=== PATIENT | male | born 1940 | race Caucasian/White ===

== ENCOUNTER 2021-06-02 05:40 | Day surgery (SDC) | payer MEDICARE, OTHER ==
--- NOTE | 2021-05-26 09:13 | HP ---
DATE OF SURGERY: 06/02/2021 HISTORY OF PRESENT ILLNESS: The patient presented for colonoscopy. He has not had a colonoscopy to date. He complains of no GI symptoms at this time. PAST MEDICAL HISTORY: Hyperlipidemia. Coronary artery disease. Hypertension. Diabetes. PAST SURGICAL HISTORY: Coronary artery bypass surgery. ALLERGIES: NKDA. MEDICATIONS: Atenolol, lovastatin, pioglitazone, metformin, glipizide, aspirin, Monopril. FAMILY HISTORY: Heart disease. Diabetes. SOCIAL HISTORY: Smokes half pack a day, occasional alcohol. REVIEW OF SYSTEMS: CONSTITUTIONAL: Denies fever or chills. CHEST: Denies shortness of breath. CVS: Denies chest pain. ABDOMEN: Denies abdominal pain. PHYSICAL EXAMINATION: GENERAL: No acute distress. CHEST: Nonlabored. No shortness of breath. CVS: Regular rate and rhythm. ABDOMEN: Soft. EXTREMITIES: No edema. NEUROLOGIC: Alert. PSYCHIATRIC: Appropriate. IMPRESSION: Screening colonoscopy. PLAN: Colonoscopy with Dr. Vivek Cee. As dictated by Ameena Grove NP.
[2021-06-02] MEDS ORDERED: Lactated Ringers 1,000 ML IV SCH (06:30)
[2021-06-02] MEDS ORDERED: DIPRIVAN 200 MG/20 ML IV ONE ×2 (08:32→09:29)
[2021-06-02] MEDS ORDERED: ROBINUL ONE (09:01)
[2021-06-02] MEDS ORDERED: Lactated Ringers 1,000 ML IV ONE (09:18)
[2021-06-02 10:08] VITALS: O2SAT 98
[2021-06-02 10:27] VITALS: BP 142/78; PULSE 62
--- NOTE | 2021-06-02 13:36 | OP ---
SURGERY DATE/TIME: 06/02/2021 0855 PREOPERATIVE DIAGNOSIS: Screening. POSTOPERATIVE DIAGNOSIS: Two polyps, 1.5 cm to cecum and 8 mm in the mid sigmoid. PROCEDURES: 1) Colonoscopy complete to cecum. 2) Cold polypectomy of the sigmoid polyp 8 mm. 3) Hot polypectomy of the 1.5 cm cecal polyp. 4) A clip was also applied to the base of the sigmoid polyp. SURGEON: Vivek Cee M.D. ANESTHESIA: MAC. COMPLICATIONS: None. CONDITION: Stable. INDICATION: A patient requiring evaluation. DESCRIPTION OF PROCEDURE: Taken to endoscopy. Anal digital examination satisfactory. Scope introduced. Sedation level satisfactory. Scope advanced to the cecum. Base of the cecum, ileocecal valve there was a 1.5 cm polyp. It was on a fold or ridge. It was taken to extinction. The center portion had just a pinpoint of red blood and was clipped with endoscopic clip. It was totally dry. The appendiceal orifice was not visible today but the base of the cecum was very well seen. Ascending, hepatic, transverse, splenic, descending. At the junction of the descending and sigmoid just slightly in the sigmoid there is an 8 mm polyp taken with two bites of cold polyp forceps. There was mild diverticulosis. The rectum and anus satisfactory. The patient tolerated the procedure satisfactorily. PLAN: Follow up in three years. He will return to our office for path report.
== END 2021-06-02 10:25 | disposition home or self-care (01) ==
LOC: SDC 05:40
PROVIDERS: ATTEND Surgery
DX: Z12.11 Encounter for screening for malignant neoplasm of colon (principal); D12.0 Benign neoplasm of cecum; D12.5 Benign neoplasm of sigmoid colon; E11.9 Type 2 diabetes mellitus without complications; I10 Essential (primary) hypertension; E78.5 Hyperlipidemia, unspecified; I25.10 Atherosclerotic heart disease of native coronary artery without angina pectoris; Z79.899 Other long term (current) drug therapy
CPT/HCPCS: 82947; 88305; 99100; J2704

== ENCOUNTER 2021-12-15 23:03 | Emergency (ER) | payer MEDICARE, OTHER ==
--- NOTE | 2021-12-15 23:31 | ERPHSYRPT ---
- History of Present Illness Time Seen by Provider: 12/15/21 23:20 Source: patient, EMS Exam Limitations: no limitations Patient Subjective Stated Complaint: fall at home, c/o lt shoulder pain Triage Nursing Assessment: pt c/o lt shoulder pain due to fall at home tonight from hypoglycemia. Pt's BS was 44, he was going to get a glass of milk and fell. Pt is c/o lt shoulder pain with movement, but denies any pain when holding arm still. Pt is able to wiggle his fingers and move his lower arm but is unable to lift his left shoulder up. Nickel sized skin tear to left elbow from fall. Physician History: This is an 81-year-old white male patient who documented that he had a low blood sugar of 44 at home. He got up to get some milk and to take other oral intake to raise his blood sugar but he fell hitting his left shoulder. His blood sugar on arrival to the emergency department was 81. He is completely alert oriented. His only complaint is left shoulder pain from the fall. He did not hit his head. He did not lose consciousness. He has no neck pain. Patient is diabetic, has a history of hypertension and elevated cholesterol. Occurred: just prior to arrival Reason for Fall: fell from standing pos Injuries/Pain Location: upper extremity (Left shoulder) Loss of Consciousness: no loss of consciousness Quality: aching Severity of Pain-Max: moderate Severity of Pain-Current: moderate Modifying Factors: Improves With: movement Associated Symptoms (Fall): extremity injury (Left shoulder) Allergies/Adverse Reactions: No Known Drug Allergies Allergy (Verified 12/15/21 23:21) Home Medications: Glipizide 10 mg [Glucotrol 10 MG] 10 mg PO BID 07/15/13 [History] Metformin HCl [Fortamet] 500 mg PO BID 07/15/13 [History] atenoloL [Atenolol] 25 mg PO DAILY 07/15/13 [History] Fosinopril Sodium 10 mg [monoPRIL 10 MG] 10 mg PO DAILY 05/26/21 [History] Lovastatin 40 mg PO DAILY 05/26/21 [History] Pioglitazone 30 mg [Actos 30 MG] 30 mg PO DAILY 05/26/21 [History] Furosemide 40 mg [Lasix 40 MG] 40 mg PO DAILY 12/15/21 [History] Hx Tetanus, Diphtheria Vaccination/Date Given: Yes Hx Influenza Vaccination/Date Given: No Hx Pneumococcal Vaccination/Date Given: No Immunizations Up to Date: Yes Travel Risk - International Travel Have you traveled outside of the country in past 3 weeks: No - Coronavirus Screening Are you exhibiting any of the following symptoms?: No Close contact with a COVID-19 positive Pt in past 14-21 Days: No - Vaccine Status 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 - Review of Systems Constitutional: No Symptoms Eyes: No Symptoms Ears, Nose, & Throat: No Symptoms Respiratory: No Symptoms Cardiac: No Symptoms Abdominal/Gastrointestinal: No Symptoms Genitourinary Symptoms: No Symptoms Musculoskeletal: Fall (Left shoulder), Injury Skin: No Symptoms Neurological: No Symptoms Psychological: No Symptoms Endocrine: No Symptoms Hematologic/Lymphatic: No Symptoms Immunological/Allergic: No Symptoms All Other Systems: Reviewed and Negative - Past Medical History Pertinent Past Medical History: Yes Neurological History: No Pertinent History ENT History: No Pertinent History Cardiac History: Coronary Artery Disease, Hypertension, Myocardial Infarction ([place]) Respiratory History: COPD Endocrine Medical History: Diabetes Type II Musculoskeletal History: Osteoarthritis GI Medical History: No Pertinent History History: No Pertinent History Psycho-Social History: No Pertinent History Male Reproductive Disorders: No Pertinent History - Past Surgical History Past Surgical History: Yes Neuro Surgical History: No Pertinent History Cardiac: CABG Respiratory: No Pertinent History Gastrointestinal: No Pertinent History Genitourinary: No Pertinent History Musculoskeletal: No Pertinent History Male Surgical History: No Pertinent History - Social History Smoking Status: Current every day smoker How long have you smoked: 67 yrs Exposure to second hand smoke: Yes Drug Use: none Patient Lives Alone: No - Nursing Vital Signs Nursing Vital Signs: Initial Vital Signs Temperature 97.7 F 12/15/21 23:07 Pulse Rate 70 12/15/21 23:07 Respiratory Rate 22 12/15/21 23:07 Blood Pressure 151/69 12/15/21 23:07 O2 Sat by Pulse Oximetry 94 L 12/15/21 23:07 Pain Scale Pain Intensity 7 - Ralston Coma Score Best Eye Response (Ralston): (4) open spontaneously Best Verbal Response (Ralston): (5) oriented Best Motor Response (Lacie): (6) obeys commands Ralston Total: 15 - Physical Exam General Appearance: no apparent distress, alert, anxiety Head Injury: no evidence of injury Eye Exam: PERRL/EOMI, eyes nml inspection ENT Exam: airway nml Neck Exam: supple, trachea midline, full range of motion, normal alignment, normal inspection Respiratory/Chest Exam: chest tenderness, normal breath sounds Cardiovascular Exam: normal heart sounds, normal peripheral pulses Gastrointestinal Exam: No tenderness Rectal Exam: not done Back Exam: normal inspection, normal range of motion, No CVA tenderness, No vertebral tenderness Extremity Exam: normal inspection, pelvis stable, limited range of motion, No evidence of injury SpO2: 94 - Course Nursing assessment & vital signs reviewed: Yes EKG Interpreted by Me: RATE (70), Sinus Rhythm, NORMAL AXIS, NORMAL INTERVALS, NORMAL QRS, Non-specific ST Changes, Other (No change when compared to EKG dated 2021-12-07. No acute ischemic changes on today's EKG) Ordered Tests: Active Orders 24 hr Category Date Time Status Sling Application STAT Care 12/16/21 00:39 Ordered HUMERUS Stat Exams 12/15/21 23:31 Taken SHOULDER Stat Exams 12/15/21 23:31 Taken POCT GLUCOSE Stat Lab 12/15/21 23:26 Completed Lab/Rad Data: Laboratory Results 12/15/21 Range/Units 23:26 POC Glucometer 81 (74 to 106) mg/dL - Progress Progress: improved, pain not gone completely, re-examined Progress Note: 12/16/21 00:40 X-ray of left shoulder and left humerus shows avulsion fracture of the greater tubercle. There is no evidence of dislocation present. Counseled pt/family regarding: lab results, diagnosis, need for follow-up, rad results - Departure Departure Disposition: Home Clinical Impression: Fall with injury, Hypoglycemia, Fracture, humerus closed Condition: Stable Critical Care Time: No Referrals: MONA FRYE MD [Primary Care Provider] - Follow up/PCP as directed Additional Instructions: Resume your diabetic diet. Monitor your blood sugar 3 times a day for the next 2 days. Do not resume your diabetic medication until you are eating well. Follow-up with [facility] orthopedic clinic or orthopedic clinic of choice tomorrow by phone to make arrangements for an appointment. Wear the sling for comfort. Contact your surgeon to determine when to restart your blood thinning medicine.
[2021-12-16 01:04] VITALS: BP 142/94; PULSE 86; O2SAT 95
[2021-12-16] MEDS ORDERED: D50W 50 ml Abboject IV ONE ×2 (01:13→01:16)
--- NOTE | 2021-12-16 08:19 | XRAY ---
Indication: Pain following fall. Comparison: None 3 view left shoulder demonstrates humeral head fracture with displaced lateral fracture fragment. Elsewhere osteopenia, moderate AC degenerative arthropathy, left mid lung subsegmental atelectasis/scarring, and CABG surgery.
--- NOTE | 2021-12-16 08:21 | XRAY ---
Indication: Pain following fall. Comparison: None 2 view left humerus demonstrates humeral head fracture with displaced lateral fracture fragment. Elsewhere osteopenia and moderate AC degenerative arthropathy. No other bony, articular, or soft tissue abnormalities.
== END 2021-12-16 01:52 | disposition home or self-care (01) ==
LOC: ED 23:03
DX: S42.255A Nondisplaced fracture of greater tuberosity of left humerus, initial encounter for closed fracture (principal); W18.30XA Fall on same level, unspecified, initial encounter; E11.649 Type 2 diabetes mellitus with hypoglycemia without coma; Z79.84 Long term (current) use of oral hypoglycemic drugs; I25.10 Atherosclerotic heart disease of native coronary artery without angina pectoris; I10 Essential (primary) hypertension; J44.9 Chronic obstructive pulmonary disease, unspecified; E78.5 Hyperlipidemia, unspecified; Z72.0 Tobacco use; Z79.899 Other long term (current) drug therapy
CPT/HCPCS: 73030; 73060; 82947; 96374; 99284

== ENCOUNTER 2021-12-19 11:50 | Observation (INO) | payer MEDICARE, OTHER ==
--- NOTE | 2021-12-19 12:17 | PCM.HP ---
History of Present Illness - Chief Complaint Chief Complaint: C/O severe weak following fall and shoulder fracture. History of Present Illness: is a 81 year old male.Patient with significant past medical history of coronary artery disease has sufficiently COPD diabetes mellitus recently patient has found to be very anemic so patient was scheduled for colonoscopy. Patient was undergoing preparation for colonoscopy during that time patient blood sugar dropped and patient fell and broke his left shoulder. Patient has a left acetabular fracture. Patient was sent home last her stay after emergency room but since then patient has been very weak. Patient is unable to eat because of the sling for shoulder fracture. Patient is now almost bedbound and also having a low sugar spells. Patient's son called me at my office which is all the more concerned so I advised him that patient needs to be admitted for further evaluation and possible further rehabilitation for his shoulder injury. - Review of Systems Constitutional: Fatigue, Lethargy, Weakness, No Fever, No Chills Eyes: No Symptoms Ears, Nose, & Throat: No Symptoms Respiratory: No Cough, No Short Of Breath Cardiac: No Chest Pain, No Edema, No Syncope Abdominal/Gastrointestinal: No Abdominal Pain, No Nausea, No Vomiting, No Diarrhea Genitourinary Symptoms: No Dysuria Musculoskeletal: Fall, Joint Pain, No Back Pain, No Neck Pain Skin: No Rash Neurological: No Dizziness, No Focal Weakness, No Sensory Changes Psychological: No Symptoms Endocrine: No Symptoms Hematologic/Lymphatic: No Symptoms Immunological/Allergic: No Symptoms Medications & Allergies Home Medications: Home Medication List Glipizide 10 mg [Glucotrol 10 MG] 10 mg PO BID 07/15/13 [History Confirmed 12/19/21] Metformin HCl [Fortamet] 500 mg PO BID 07/15/13 [History Confirmed 12/19/21] atenoloL [Atenolol] 25 mg PO DAILY 07/15/13 [History Confirmed 12/19/21] Fosinopril Sodium 10 mg [monoPRIL 10 MG] 10 mg PO DAILY 05/26/21 [History Confirmed 12/19/21] Lovastatin 40 mg PO DAILY 05/26/21 [History Confirmed 12/19/21] Pioglitazone 30 mg [Actos 30 MG] 30 mg PO DAILY 05/26/21 [History Confirmed 12/19/21] Furosemide 40 mg [Lasix 40 MG] 40 mg PO DAILY 12/15/21 [History Confirmed 12/19/21] Allergies/Adverse Reactions: Allergies Allergy/AdvReac Type Severity Reaction Status Date / Time No Known Drug Allergies Allergy Verified 12/15/21 23:21 - Past Medical History Past Medical History: Yes Neurological History: No Pertinent History ENT History: No Pertinent History Cardiac History: Coronary Artery Disease, Hypertension, Myocardial Infarction ([place]) Respiratory History: COPD Endocrine Medical History: Diabetes Type II Musculoskelatal History: Osteoarthritis GI Medical History: No Pertinent History History: No Pertinent History Pyscho-Social History: No Pertinent History Male Reproductive Disorders: No Pertinent History - Past Surgical History Past Surgical History: Yes Neuro Surgical History: No Pertinent History Cardiac History: CABG Respiratory Surgery: No Pertinent History GI Surgical History: No Pertinent History Genitourinary Surgical Hx: No Pertinent History Musculskeletal Surgical Hx: No Pertinent History Male Surgical History: No Pertinent History - Social History Smoking Status: Current every day smoker How long have you smoked: 67 yrs Exposure to second hand smoke: Yes Alcohol: Rarely Drug Use: none - Physical Exam General Appearance: moderate distress, alert Neurologic Exam: alert, oriented x 3, cooperative, normal mood/affect, motor weakness, No motor deficits, No sensory deficit Eye Exam: PERRL/EOMI, eyes nml inspection Ears, Nose, Throat Exam: normal ENT inspection, TMs normal, pharynx normal, moist mucous membranes Neck Exam: normal inspection, non-tender, supple, full range of motion Respiratory Exam: normal breath sounds, lungs clear, No respiratory distress Cardiovascular Exam: regular rate/rhythm, normal heart sounds, normal peripheral pulses Gastrointestinal/Abdomen Exam: soft, normal bowel sounds, No tenderness, No mass Back Exam: normal inspection, normal range of motion, No CVA tenderness, No vertebral tenderness Extremity Exam: normal inspection, normal range of motion, pelvis stable, deformities, limited range of motion Skin Exam: normal color, warm, dry, No rash Lymphatic Exam: No adenopathy Assessment/Plan (1) Hypoglycemia Current Visit: Yes Status: Acute Code(s): E16.2 - HYPOGLYCEMIA, UNSPECIFIED (2) Fall with injury Current Visit: Yes Status: Acute Qualifiers: Encounter type: subsequent encounter Qualified Code(s): W19.XXXD - Unspecified fall, subsequent encounter Code(s): W19.XXXA - UNSPECIFIED FALL, INITIAL ENCOUNTER (3) Fracture, humerus closed Current Visit: Yes Status: Acute Qualifiers: Encounter type: subsequent encounter Humerus Location: surgical neck Fracture morphology: 2-part Fracture alignment: nondisplaced Code(s): S42.309A - UNSP FRACTURE OF SHAFT OF HUMERUS, UNSP ARM, INIT
[2021-12-19] MEDS ORDERED: HUMALOG SQ PRN (12:18)
[2021-12-19] MEDS ORDERED: Sodium Chloride 0.9% 1000 ML 1,000 ML IV SCH (12:30)
[2021-12-19 12:45] LABS: INFLUENZA A NEGATIVE (NEGATIVE); INFLUENZA B NEGATIVE (NEGATIVE); RESPIRATORY SYNCTIAL VIRUS NEGATIVE (Negative)
[2021-12-19 12:56] LABS: SARS-CoV-2 Xpert Express POSITIVE (NEGATIVE)
[2021-12-19 13:12] LABS: Absolute Neutrophil Ct (ANC) 5.12 (1.4-6.9); Basophil (Absolute #) 0.01 (0-0.4); Eosinophil % 2.3 % (0.00-5.0); Eosinophil (Absolute #) 0.17 (0-0.5); Hematocrit 33.7 % (42-50); Hemoglobin 10.3 gm/dl (12.5-18.0); Lymphocytes % 16.5 % (24.0-44.0); Mean Cell Volume 87.1 fl (78-100); Mean Corpuscular Hemoglobin 26.6 pg (26-32); Mean Corpuscular Hgb Concent. 30.6 g/dl (32-36); Mean Platelet Volume 10.5 fl (7.5-11.0); Monocyte (Absolute #) 0.76 (0.0-1.3); Monocytes % 10.5 % (0.0-12.0); Neutrophil % 70.6 % (36.0-66.0); Platelet Count 162 K/mm3 (150-450); Red Blood Count 3.87 M/mm3 (4.1-5.6); Red Cell Distribution Width 18.2 % (11.5-14.0); White Blood Count 7.3 K/mm3 (4.0-10.5)
[2021-12-19 13:34] LABS: ALBUMIN 3.6 g/dL (3.5-5.0); ALKALINE PHOSPHATASE 54 U/L (38-126); ANION GAP 13.3 MEQ/L (5-15); BLOOD UREA NITROGEN 38 mg/dL (9-20); CHLORIDE 99 mmol/L (98-107); Calcium 7.6 mg/dL (8.4-10.2); Carbon Dioxide 27 mmol/L (22-30); EST GLOMERULAR FILTRATION RATE > 60.0 ML/MIN; Glucose 97 mg/dL (74-106); NT PRO BNP 14800 pg/mL (0-1800); Potassium 4.6 mmol/L (3.5-5.1); SGOT/AST 68 U/L (17-59); SGPT/ALT 25 U/L (0-50); SODIUM 134 mmol/L (137-145); Total Protein 7.7 g/dL (6.3-8.2)
--- NOTE | 2021-12-19 16:21 | XRAY ---
Indication: Weakness. Positive Covid 19. Comparison: July 15, 2013. Portable apical lordotic chest demonstrates new diffuse left lung hazy interstitial alveolar opacities without consolidation/large effusion. Remaining heart and right lung unremarkable again with CABG. Bony thorax intact again with mild osteopenia and degenerative changes.
[2021-12-19] MEDS: Glucotrol 5 MG PO SCH (17:31)
[2021-12-19] MEDS: Glucophage 500 MG PO SCH (17:31)
[2021-12-19] MEDS: ENOXAPARIN SODIUM SQ SCH (17:32)
[2021-12-19] MEDS ORDERED: METFORMIN HCL 500 MG PO SCH (22:00)
[2021-12-19] MEDS ORDERED: NON-FORMULARY ITEM (Glipizide 10 Mg*** [Glucotrol 10 Mg***] 10 MG Tablet) PO SCH (22:00)
[2021-12-20 06:54] LABS: TROPONIN 0.074 ng/mL (0.000-0.034)
[2021-12-20] MEDS: Glucotrol 5 MG PO SCH ×2 (07:29→17:23)
[2021-12-20] MEDS: Glucophage 500 MG PO SCH ×2 (07:29→17:23)
[2021-12-20] MEDS: monoPRIL 10 MG PO SCH (09:07)
[2021-12-20] MEDS: Actos 30 MG PO SCH (09:07)
[2021-12-20] MEDS: Lasix 40 MG PO SCH (09:08)
[2021-12-20] MEDS: TENORMIN 50 MG PO SCH (09:08)
[2021-12-20] MEDS: ENOXAPARIN SODIUM SQ SCH (09:09)
[2021-12-20] MEDS: ZOCOR 20MG PO SCH (09:11)
[2021-12-20] MEDS ORDERED: NON-FORMULARY ITEM (Lovastatin [Lovastatin] 40 MG Tablet) PO SCH (10:00)
[2021-12-20] MEDS ORDERED: NON-FORMULARY ITEM (Atenolol [Atenolol] 25 MG Tablet) PO SCH (10:00)
[2021-12-21 06:08] LABS: Absolute Neutrophil Ct (ANC) 2.96 (1.4-6.9); Basophil (Absolute #) 0.01 (0-0.4); Eosinophil % 1.9 % (0.00-5.0); Hematocrit 32.3 % (42-50); Hemoglobin 9.7 gm/dl (12.5-18.0); Lymphocyte (Absolute #) 1.56 (1.0-4.6); Lymphocytes % 29.1 % (24.0-44.0); Mean Corpuscular Hemoglobin 26.4 pg (26-32); Mean Platelet Volume 10.5 fl (7.5-11.0); Monocyte (Absolute #) 0.73 (0.0-1.3); Monocytes % 13.6 % (0.0-12.0); Neutrophil % 55.2 % (36.0-66.0); Platelet Count 174 K/mm3 (150-450); Red Blood Count 3.67 M/mm3 (4.1-5.6); Red Cell Distribution Width 18.1 % (11.5-14.0); White Blood Count 5.4 K/mm3 (4.0-10.5)
[2021-12-21 06:32] LABS: Appearance SLIGHTLY CLOUDY (CLEAR); Bilirubin NEGATIVE (NEGATIVE); Blood SMALL Ery/ul (0-5); Glucose NEGATIVE (NEGATIVE); Ketones NEGATIVE (NEGATIVE); Leukocyte Esterase LARGE (NEGATIVE); Nitrite NEGATIVE (NEGATIVE); Protein,Urine Dip NEGATIVE (Negative); Specific Gravity 1.008 (1.005-1.025); Urobilinogen NEGATIVE mg/dL (0-1); WBC 26-50 /HPF (0-5)
[2021-12-21] MEDS: Glucotrol 5 MG PO SCH (08:02)
[2021-12-21] MEDS: Glucophage 500 MG PO SCH (08:03)
[2021-12-21 08:15] VITALS: O2SAT 94
[2021-12-21 08:21] LABS: ALBUMIN 3.1 g/dL (3.5-5.0); ALKALINE PHOSPHATASE 54 U/L (38-126); ANION GAP 10.9 MEQ/L (5-15); BLOOD UREA NITROGEN 31 mg/dL (9-20); CHLORIDE 99 mmol/L (98-107); Calcium 7.5 mg/dL (8.4-10.2); Carbon Dioxide 30 mmol/L (22-30); Creatinine 1 0.82 mg/dL (0.66-1.25); EST GLOMERULAR FILTRATION RATE > 60.0 ML/MIN; Glucose 74 mg/dL (74-106); Potassium 4.1 mmol/L (3.5-5.1); SGOT/AST 62 U/L (17-59); SGPT/ALT 27 U/L (0-50); SODIUM 136 mmol/L (137-145); Total Protein 6.8 g/dL (6.3-8.2)
[2021-12-21] MEDS: ZOCOR 20MG PO SCH (08:51)
[2021-12-21] MEDS: TENORMIN 50 MG PO SCH (08:52)
[2021-12-21] MEDS: Lasix 40 MG PO SCH (08:52)
[2021-12-21] MEDS: ENOXAPARIN SODIUM SQ SCH (08:53)
[2021-12-21] MEDS: Actos 30 MG PO SCH (08:53)
[2021-12-21] MEDS: monoPRIL 10 MG PO SCH (08:53)
[2021-12-21 11:41] VITALS: BP 120/65; PULSE 71
--- NOTE | 2021-12-21 12:43 | PROG NOTE ---
DATE: 12/21/2021 HISTORY: Pietro Tanner is here because supposedly he was anemic which he was a few weeks ago. When he got here his hemoglobin was adequate. He has not been able to walk for weeks. He was hoping to find out the reason for that and the etiology of his anemia. This summer he had an EGD and colonoscope that found nothing. He was taking NSAID's for his arthritis which had flared up which is real bad so he was not walking and taking NSAID's. Dr. Trujillo stopped the NSAID's and put him on Tylenol which helped his pain. However, I really think since he has not been walking for weeks he is no longer able to ambulate due to muscle weakness. On examination of his quadriceps they are extremely weak. He did test positive for COVID. However, he has a very minor case, not needing oxygen and he is recovering from that. Today at physical therapy, he walked with the assistance of one person and he does have his left arm in a sling from acetabular fracture when he fell at home. His chest is clear. PLAN: As he recovers from the COVID, gets stronger, be transferred to a [facility] for further physical therapy. I think really that he has already been scoped and does not need further work up for his anemia. I did a CBC to check his hemoglobin.
== END 2021-12-21 15:14 ==
LOC: UNDOADMOB 11:50 → MED SURG 11:50 → UNDOADMOB 13:50 → UNDODISOB 12-21 15:14
PROVIDERS: ADMIT Family Medicine; ATTEND Family Medicine
DX: E16.2 Hypoglycemia, unspecified (principal); U07.1 COVID-19; W19.XXXD Unspecified fall, subsequent encounter; S42.302D Unspecified fracture of shaft of humerus, left arm, subsequent encounter for fracture with routine healing; D64.9 Anemia, unspecified; E11.9 Type 2 diabetes mellitus without complications; J44.9 Chronic obstructive pulmonary disease, unspecified; I25.10 Atherosclerotic heart disease of native coronary artery without angina pectoris; I10 Essential (primary) hypertension; Z79.899 Other long term (current) drug therapy; Z72.0 Tobacco use; Z20.828 Contact with and (suspected) exposure to other viral communicable diseases
CPT/HCPCS: 0241U; 36415; 71045; 80053; 81001; 82550; 82947; 83036; 83880; 84484; 85025; 85379; 87040; 87086; 93005; 93268; 94762; 97161; 97165; 97530; G0378; J1650; A9270-GY

== ENCOUNTER 2022-05-16 23:19 | Emergency (ER) | payer MEDICARE, OTHER ==
--- NOTE | 2022-05-16 23:24 | ERPHSYRPT ---
- History of Present Illness Time Seen by Provider: 05/16/22 23:24 Source: patient, family Exam Limitations: no limitations Physician History: This is an 82-year-old white male patient of Dr. Frye and presents with gross hematuria that started last evening. He is also had dysuria intermittently for the last 6 months. Patient was told by his primary care physician that he also had prostate issues. Patient has no abdominal pain. He is not on any anticoagulation therapy. Patient does have a history of chronic anemia, hypertension, diabetes, elevated cholesterol, coronary artery disease and CABG. He has no chest pain. He does not have shortness of breath. He has not seen a urologist. Timing/Duration: yesterday Activites at Onset: none Quality: burning (With urination) Onset Location: other (Dysuria) Pain Radiation: none Severity of Pain-Max: mild Severity of Pain-Current: mild Associated Symptoms: denies symptoms Prior abdominal problems: none Sexual intercourse history: non-contributory Allergies/Adverse Reactions: No Known Drug Allergies Allergy (Verified 05/16/22 23:31) Home Medications: Glipizide 10 mg [Glucotrol 10 MG] 10 mg PO BID 07/15/13 [History] Metformin HCl [Fortamet] 500 mg PO BID 07/15/13 [History] atenoloL [Atenolol] 25 mg PO DAILY 07/15/13 [History] Fosinopril Sodium [monoPRIL] 10 mg PO DAILY 05/26/21 [History] Lovastatin 40 mg PO DAILY 05/26/21 [History] Pioglitazone 30 mg [Actos 30 MG] 30 mg PO DAILY 05/26/21 [History] Furosemide 40 mg [Lasix 40 MG] 40 mg PO DAILY 12/15/21 [History] Hx Tetanus, Diphtheria Vaccination/Date Given: Yes Hx Influenza Vaccination/Date Given: No Hx Pneumococcal Vaccination/Date Given: No Travel Risk - International Travel Have you traveled outside of the country in past 3 weeks: No - Coronavirus Screening Are you exhibiting any of the following symptoms?: No Close contact with a COVID-19 positive Pt in past 14-21 Days: No - Vaccine Status Have you recieved a Covid-19 vaccination: Yes Video Conference Specialist: Moderna - Vaccination Dates Date of 2cond Vaccination (if applicable): unk - Past Medical History Pertinent Past Medical History: Yes Neurological History: No Pertinent History ENT History: No Pertinent History Cardiac History: Coronary Artery Disease, Hypertension, Myocardial Infarction (OR) Respiratory History: COPD Endocrine Medical History: Diabetes Type II Musculoskeletal History: Osteoarthritis GI Medical History: No Pertinent History History: No Pertinent History Psycho-Social History: No Pertinent History Male Reproductive Disorders: No Pertinent History - Past Surgical History Past Surgical History: Yes Neuro Surgical History: No Pertinent History Cardiac: CABG Respiratory: No Pertinent History Gastrointestinal: No Pertinent History Genitourinary: No Pertinent History Musculoskeletal: No Pertinent History Male Surgical History: No Pertinent History - Social History Smoking Status: Current every day smoker How long have you smoked: 67 yrs Exposure to second hand smoke: Yes Drug Use: none Patient Lives Alone: No - Review of Systems Constitutional: No Symptoms Eyes: No Symptoms Ears, Nose, & Throat: No Symptoms Respiratory: No Symptoms Cardiac: No Symptoms Abdominal/Gastrointestinal: No Symptoms Genitourinary Symptoms: Dysuria, Hematuria Musculoskeletal: No Symptoms Skin: No Symptoms Neurological: No Symptoms Psychological: No Symptoms Endocrine: No Symptoms Hematologic/Lymphatic: No Symptoms Immunological/Allergic: No Symptoms All Other Systems: Reviewed and Negative - Nursing Vital Signs Nursing Vital Signs: Initial Vital Signs Temperature 97.5 F 05/16/22 23:33 Pulse Rate 68 05/16/22 23:33 Respiratory Rate 16 05/16/22 23:33 Blood Pressure 125/64 05/16/22 23:33 O2 Sat by Pulse Oximetry 100 05/16/22 23:33 Pain Scale Pain Intensity 0 - Physical Exam General Appearance: no apparent distress, alert, anxiety Eye Exam: PERRL/EOMI, eyes nml inspection Ears, Nose, Throat Exam: normal ENT inspection, moist mucous membranes Neck Exam: normal inspection, non-tender, supple, full range of motion Respiratory Exam: normal breath sounds, lungs clear, airway intact, No chest tenderness, No respiratory distress Cardiovascular Exam: regular rate/rhythm, normal heart sounds, normal peripheral pulses Gastrointestinal/Abdomen Exam: soft, normal bowel sounds, No tenderness Rectal Exam: not done Back Exam: normal inspection, normal range of motion, No CVA tenderness, No vertebral tenderness Extremity Exam: normal inspection, normal range of motion, pelvis stable Neurologic Exam: alert, oriented x 3, cooperative, plasterer foreman II-XII nml as tested, normal mood/affect, nml cerebellar function, nml station & gait, sensation nml Skin Exam: normal color, warm, dry Lymphatic Exam: No adenopathy SpO2 Interpretation: normal O2 Delivery: Room Air - Course Nursing assessment & vital signs reviewed: Yes Ordered Tests: Active Orders 24 hr Category Date Time Status IV Insertion STAT Care 05/16/22 23:29 Active CBC W DIFF Stat Lab 05/16/22 00:14 Completed CMP Stat Lab 05/16/22 00:14 Received PROTIME WITH INR Stat Lab 05/16/22 00:14 Received UA W/RFX CULTURE Stat Lab 05/16/22 23:47 Results Medication Summary Generic Name Dose Route Start Last Admin Trade Name Freq PRN Reason Stop Dose Admin Sodium Chloride 500 mls @ 500 mls/hr 05/16/22 23:49 05/17/22 00:25 Sodium Chloride 0.9% 500 Ml IV 05/17/22 00:48 500 mls/hr .Q1H ONE Administration Discontinued Medications Generic Name Dose Route Start Last Admin Trade Name Freq PRN Reason Stop Dose Admin Sodium Chloride Confirm 05/17/22 00:24 Sodium Chloride 0.9% 1000 Ml Administered 05/17/22 00:25 Dose 1,000 mls @ ud .ROUTE .STK-MED ONE Sodium Chloride Confirm 05/17/22 00:25 Sodium Chloride 0.9% 500 Ml Administered 05/17/22 00:26 Dose 500 mls @ ud IV .STK-MED ONE Lab/Rad Data: Laboratory Result Diagrams 05/16/22 00:14 Laboratory Results 05/16/22 05/16/22 Range/Units 23:47 00:14 WBC 10.4 (4.0-10.5) x10^3/uL RBC 3.79 L (4.1-5.6) x10^6/uL Hgb 10.2 L (12.5-18.0) g/dL Hct 34.0 L (42-50) % MCV 89.7 (78-100) fL MCH 26.9 (26-32) pg MCHC 30.0 L (32-36) g/dL RDW 15.3 H (11.5-14.0) % Plt Count 267 (150-450) x10^3/uL MPV 9.2 (7.5-11.0) fL Gran % 51.0 (36.0-66.0) % Immature Gran % (Auto) 0.3 (0.00-0.4) % Nucleat RBC Rel Count 0.0 (0.00-0.1) % Eos # (Auto) 0.21 (0-0.5) x10^3/uL Immature Gran # (Auto) 0.03 (0.00-0.03) x10^3u/L Absolute Lymphs (auto) 4.03 (1.0-4.6) x10^3/uL Absolute Monos (auto) 0.79 (0.0-1.3) x10^3/uL Absolute Nucleated RBC 0.00 (0.00-0.01) x10^3u/L Lymphocytes % 38.8 (24.0-44.0) % Monocytes % 7.6 (0.0-12.0) % Eosinophils % 2.0 (0.00-5.0) % Basophils % 0.3 (0.0-0.4) % Absolute Granulocytes 5.29 (1.4-6.9) x10^3/uL Basophils # 0.03 (0-0.4) x10^3/uL Urinalys Dipstick Clnc MAIN LAB Urine Color BROWN (YELLOW) Urine Appearance TURBID (CLEAR) Urine pH 5.5 (5-6) Ur Specific [place] 1.020 (1.005-1.025) POC Urine Protein Conf >=300 (Negative) Urine Ketones TRACE (NEGATIVE) Urine Nitrite NEGATIVE (NEGATIVE) Urine Bilirubin MODERATE (NEGATIVE) Urine Urobilinogen 1 (0-1) mg/dL Urine Leukocytes LARGE (NEGATIVE) Urine WBC (Auto) >100 (0-5) /HPF Urine RBC (Auto) >101 (0-2) /HPF U Epithel Cells (Auto) NONE (FEW) /HPF Urine Bacteria (Auto) MODERATE (NEGATIVE) /HPF Urine RBC LARGE (0-5) Ramirez/ul Ur Culture Indicated? YES Urine Glucose NEGATIVE (NEGATIVE) mg/dL - Departure Departure Disposition: Home Clinical Impression: Hemorrhagic cystitis, UTI (urinary tract infection), Mild dehydration Condition: Stable Critical Care Time: No Referrals: MONA FRYE MD [Primary Care Provider] - Follow up/PCP as directed Additional Instructions: Drink plenty of fluids. Take your antibiotics as prescribed. Follow-up with your primary care provider for referral to a urologist as indicated. Prescriptions: Levofloxacin [Levaquin 500 MG Tablet] 500 mg PO DAILY #7 tablet Phenazopyridine HCl 200 mg [Pyridium 200 mg] 200 mg PO TID #6 tablet
[2022-05-16] MEDS ORDERED: Sodium Chloride 0.9% 500 ML 500 ML IV ONE (23:49)
[2022-05-17 00:17] LABS: Absolute Neutrophil Ct (ANC) 5.29 x10^3/uL (1.4-6.9); Basophil (Absolute #) 0.03 x10^3/uL (0-0.4); Eosinophil (Absolute #) 0.21 x10^3/uL (0-0.5); Hemoglobin 10.2 g/dL (12.5-18.0); Lymphocyte (Absolute #) 4.03 x10^3/uL (1.0-4.6); Lymphocytes % 38.8 % (24.0-44.0); Mean Cell Volume 89.7 fL (78-100); Mean Corpuscular Hemoglobin 26.9 pg (26-32); Mean Platelet Volume 9.2 fL (7.5-11.0); Monocyte (Absolute #) 0.79 x10^3/uL (0.0-1.3); Monocytes % 7.6 % (0.0-12.0); Platelet Count 267 x10^3/uL (150-450); Red Blood Count 3.79 x10^6/uL (4.1-5.6); Red Cell Distribution Width 15.3 % (11.5-14.0); White Blood Count 10.4 x10^3/uL (4.0-10.5)
[2022-05-17] MEDS ORDERED: Sodium Chloride 0.9% 1000 ML 0 ML ONE (00:24)
[2022-05-17] MEDS ORDERED: Sodium Chloride 0.9% 500 ML 500 ML IV ONE (00:25)
[2022-05-17 00:36] LABS: ALBUMIN 3.4 g/dL (3.5-5.0); ANION GAP 12.2 MEQ/L (5-15); BILIRUBIN,TOTAL 0.5 mg/dL (0.2-1.3); Calcium 8.2 mg/dL (8.4-10.2); Creatinine 1 1.41 mg/dL (0.66-1.25); EST GLOMERULAR FILTRATION RATE 51.1 ML/MIN; Potassium 4.9 mmol/L (3.5-5.1); Total Protein 7.7 g/dL (6.3-8.2)
[2022-05-17 00:39] LABS: Appearance TURBID (CLEAR); Bacteria MODERATE /HPF (NEGATIVE); Glucose NEGATIVE (NEGATIVE); WBC >100 /HPF (0-5)
[2022-05-17 00:40] LABS: Bilirubin MODERATE (NEGATIVE); Dipstick done @ ? MAIN LAB; Ketones TRACE (NEGATIVE); Nitrite NEGATIVE (NEGATIVE); Ph 5.5 (5-6); Protein,Urine Dip >=300 (Negative); RBC >101 /HPF (0-2); RBC LARGE Ery/ul (0-5); Urobilinogen 1 mg/dL (0-1)
[2022-05-17 00:41] LABS: Urine Cultured Indicated? YES
[2022-05-17] MEDS ORDERED: Levofloxacin 500 MG Tablet PO ONE (00:43)
[2022-05-17] MEDS ORDERED: ROCEPHIN 1 Gm-D5w 50 ml Bag** 1 G/50 ML IVPB IV STA (00:43)
[2022-05-17 00:47] LABS: INR 1.02 (0.8-3.0); PROTIME 10.8 SECONDS (9.4-12.5)
[2022-05-17] MEDS ORDERED: Levofloxacin 500 MG Tablet ONE (00:48)
[2022-05-17] MEDS ORDERED: ROCEPHIN 1 Gm-D5w 50 ml Bag** 1 G/50 ML IVPB IV ONE (00:48)
[2022-05-17 01:31] VITALS: BP 127/52; PULSE 78; O2SAT 96
== END 2022-05-17 01:47 | disposition home or self-care (01) ==
LOC: ED 23:19
DX: N30.91 Cystitis, unspecified with hematuria (principal); E86.0 Dehydration; R30.0 Dysuria; I10 Essential (primary) hypertension; E11.9 Type 2 diabetes mellitus without complications; E78.5 Hyperlipidemia, unspecified; J44.9 Chronic obstructive pulmonary disease, unspecified; Z72.0 Tobacco use; Z79.84 Long term (current) use of oral hypoglycemic drugs; Z79.899 Other long term (current) drug therapy
CPT/HCPCS: 36000; 36415; 80053; 81015; 85025; 85610; 87086; 96374; 96375; 99284; J0696; A9270-GY